=== PATIENT | female | born 1965 | race Caucasian/White ===

== ENCOUNTER 2016-09-27 12:05 | Emergency (ER) | payer MEDICAID ==
--- NOTE | 2016-09-27 12:27 | C.PDOC ---
History Of Present Illness 50 y/o female, with history of hypothyroidism, presents to ED with c/o right wrist pain. Patient states she was helping her mother walk down the stairs yesterday, and notes that her mother almost fell, causing her to reach out and grab the railing. Patient reports she sustained twisting injury to her right wrist. She notes pain is worse to lateral aspect of wrist, described as aching and sharp, and at times radiating up right arm. Denies weakness, numbness, fall , or other injury. PMD: Dr. Cobian Time Seen by Provider: 09/27/16 12:23 Chief Complaint (Nursing): Upper Extremity Problem/Injury History Per: Patient History/Exam Limitations: no limitations Onset/Duration Of Symptoms: Days Current Symptoms Are (Timing): Still Present Quality: Sharp, Aching, "Pain" Recent travel outside of the [place]: No Past Medical History Reviewed: Historical Data, Nursing Documentation, Vital Signs Vital Signs: Last Vital Signs Temp 98.7 F 09/27/16 12:10 Pulse 79 09/27/16 12:10 Resp 16 09/27/16 12:10 BP 110/76 09/27/16 12:10 Pulse Ox 96 09/27/16 12:48 - Medical History PMH: Hyperthyroidism Family History: States: Unknown Family Hx - Social History Hx Alcohol Use: No Hx Substance Use: No - Immunization History Hx Tetanus Toxoid Vaccination: No Hx Influenza Vaccination: No Review Of Systems Except As Marked, All Systems Reviewed And Found Negative. Constitutional: Negative for: Fever, Chills Musculoskeletal: Positive for: Other (right wrist pain) Skin: Negative for: Rash Neurological: Negative for: Weakness, Numbness Physical Exam - Physical Exam Appears: Non-toxic, No Acute Distress Skin: Normal Color, Warm, Dry Head: Atraumatic, Normacephalic Extremity: Tenderness (lateral right wrist), Capillary Refill (< 2 sec. ), No Deformity, No Swelling, Other (Right wrist ROM: pain with supination, no pain with pronation or flexion against resistance of the wrist) Extremity: Bilateral: Normal Color And Temperature Pulses: Left Radial: Normal, Right Radial: Normal Neurological/Psych: Oriented x3, Normal Motor, Normal Sensation ED Course And Treatment O2 Sat by Pulse Oximetry: 96 (RA) Pulse Ox Interpretation: Normal Medical Decision Making Medical Decision Making: IMPRESSION: 50 y/o female with right wrist pain DIFFERENTIAL DIAGNOSIS: muscle strain, tendon strain, r/o fracture PLAN: * Right wrist x-ray * Tylenol * Reassess PROGRESS: Xray negative. Patient will follow up with her PMD in 1-2days. Rest, ice and take ibruprofen as instructed. Disposition Doctor Will See Patient In The: ED Counseled Patient/Family Regarding: Diagnosis, Need For Followup, Rx Given - Disposition Referrals: Watson Mata MD [Medical Doctor] - Disposition: HOME/ ROUTINE Disposition Time: 12:54 Condition: IMPROVED Additional Instructions: Ms Purdy, thank you for letting us take care of you today. Your provider was Dr. Carvajal. You were treated for Wrist Injury. The emergency medical care you received today was directed at your acute symptoms. If you were prescribed any medication, please fill it and take as directed. It may take several days for your symptoms to resolve. Return to the Emergency Department if your symptoms worsen, do not improve, or if you have any other problems. Please contact your doctor or call one of the physicians/clinics you have been referred to that are listed on the Patient Visit Information form that is included in your discharge packet. Bring any paperwork you were given at discharge with you along with any medications you are taking to your follow up visit. Our treatment cannot replace ongoing medical care by a primary care provider (PCP) outside of the emergency department. Thank you for allowing the [facility] team to be part of your care today. If you had an X-Ray or CT scan: A Radiologist will review the ED reading if any change in treatment is needed we will contact you. If you had a blood, urine, or wound culture: It will take several days for the results, if any change in treatment is needed we will contact you. If you had an STI test: It will take 48 hours for the results. Please call after 1 week if you have not heard back. Prescriptions: Ibuprofen [Motrin] 600 mg PO Q6 PRN #30 tab PRN Reason: Pain, Moderate (4-7) Instructions: Wrist Injury (ED) Forms: Work Excuse, General Discharge Instructions - POA Present On Arrival: None - Clinical Impression Clinical Impression: Wrist strain - Scribe Statement The provider has reviewed the documentation as recorded by the Justus delgado Provider Attestation: All medical record entries made by the Scribe were at my direction and personally dictated by me. I have reviewed the chart and agree that the record accurately reflects my personal performance of the history, physical exam, medical decision making, and the department course for this patient. I have also personally directed, reviewed, and agree with the discharge instructions and disposition.
--- NOTE | 2016-09-27 13:32 | RAD ---
PROCEDURE: Right Wrist Radiographs. HISTORY: pain r/o fx COMPARISON: None. FINDINGS: BONES: There are small bony fragment seen adjacent to the lunate bone in the lateral view may represent acute of avulsion or chip fractures JOINTS: Normal. No dislocation. SOFT TISSUES: Normal. OTHER FINDINGS: None. IMPRESSION: Small bony fragments seen adjacent to the lunate bone in the lateral view suspicious for avulsion or chip fracture. Findings reported to and discussed with the referring physician Dr. Carvajal at 21:25 p.m. on 09/27/2016
[2016-09-27 14:43] VITALS: BP 102/72; PULSE 82; RESP 17; TEMP 98.2; O2SAT 100
== END 2016-09-27 14:45 | disposition home or self-care (01) ==
LOC: C.ER 12:05
DX: S62.101A Fracture of unspecified carpal bone, right wrist, initial encounter for closed fracture (principal); X50.1XXA Overexertion from prolonged static or awkward postures, initial encounter; Y92.89 Other specified places as the place of occurrence of the external cause

== ENCOUNTER 2017-08-12 16:16 | Emergency (ER) | payer MEDICAID ==
[2017-08-12 16:24] VITALS: BP 114/79; TEMP 98.6; O2SAT 97
--- NOTE | 2017-08-12 17:38 | C.PDOC ---
History Of Present Illness 51 yo female come in for evaluation of gradual onset of Right lower back pain developed for past 3 days. Pt reports, " lean forwards to wipe my foot in after shower and have hear some snap in my back". Pt sts, pain is localized over Right lower back and worse with movement. Otherwise, pt denies fall. head injury , LOC, neck pain, CP, SOB, abd. pain, N/V, denies UTI sx, saddle anesthesia, incontinence, denies weakness, sensory or vascular deficits to B/L LEs. Pt admits, takes Ibuprofen at hoe without improvement. Ambulate to ED for evaluation, not in any apparent distress. Time Seen by Provider: 08/12/17 17:12 Chief Complaint (Nursing): Back Pain History Per: Patient Onset/Duration Of Symptoms: Gradual Past Medical History Reviewed: Historical Data, Nursing Documentation, Vital Signs Vital Signs: Last Vital Signs Temp 98.6 F 08/12/17 16:21 Pulse Resp 18 08/12/17 16:21 BP 114/79 08/12/17 16:21 Pulse Ox 97 08/12/17 17:42 - Medical History PMH: Hyperthyroidism, Hypothyroidism Family History: States: Unknown Family Hx - Social History Hx Tobacco Use: No Hx Alcohol Use: No Hx Substance Use: No - Immunization History Hx Tetanus Toxoid Vaccination: No Hx Influenza Vaccination: No Review Of Systems Except As Marked, All Systems Reviewed And Found Negative. Constitutional: Negative for: Fever, Chills ENT: Negative for: Throat Pain Cardiovascular: Negative for: Chest Pain Respiratory: Negative for: Shortness of Breath Gastrointestinal: Negative for: Nausea, Vomiting, Abdominal Pain Genitourinary: Negative for: Dysuria, Frequency, Incontinence Musculoskeletal: Positive for: Back Pain. Negative for: Neck Pain Neurological: Negative for: Weakness, Numbness Physical Exam - Physical Exam Appears: Well, Non-toxic, No Acute Distress Skin: Normal Color, Warm, Dry, No Rash, No Ecchymosis Head: Normacephalic Eye(s): bilateral: PERRL Nose: No Flaring, No Deformity Oral Mucosa: Moist Neck: Trachea Midline, Supple Gastrointestinal/Abdominal: Soft, No Tenderness, No Distention, No Guarding, No Rebound Back: No CVA Tenderness, No Vertebral Tenderness, Muscle Spasm (Right lumbar paraspinal), Paraspinal Tenderness (Right lumbar paraspinal tenderness) Extremity: Normal ROM, No Tenderness, No Pedal Edema, No Deformity, No Swelling DTR: Knee (R): 2+, Knee (L): 2+, Ankle (R): 2+, Ankle (L): 2+ Neurological/Psych: Oriented x3, Normal Speech, Normal Motor, Normal Sensation ED Course And Treatment O2 Sat by Pulse Oximetry: 97 - Other Rad L-spine X-Ray: Interpreted by Me, Viewed By Me Interpretation: (+) severe DJD, (-) acute fx or sublux Progress Note: On re-eval, pt is afebrile, hemodynamicaly stable. Non-toxic. Ambulatory in ED with stable gait. PulsEOx 98% RA. neck: Supple, (-) midline tenderness. Abd: benign. Neurologicaly intact. L-spine xray review (+) diffuse mod DJD, no acute fx or sublux. Pt has clinical finidngs c/w Right lower back strain. Pt advised. re.f to f/u with PMD in 2-3 days for re-eval. return if any new changes. Disposition Counseled Patient/Family Regarding: Studies Performed, Diagnosis, Need For Followup, Rx Given - Disposition Referrals: Watson Mata MD [Medical Doctor] - Disposition: HOME/ ROUTINE Disposition Time: 18:20 Condition: STABLE Additional Instructions: Light duty to lower back Take medication as prescribed Follow up with PMD in 2-3 days for re-evaluation. Return to ED if any worsening or new changes. Prescriptions: Gabapentin [Neurontin] 300 mg PO TID #14 cap Prednisone [Deltasone] 40 mg PO DAILY #6 tablet traMADol [Ultram] 50 mg PO TID #7 tab Instructions: Low Back Pain (DC) Forms: [employer] (A[place]i) - Clinical Impression Clinical Impression: Low back strain
--- NOTE | 2017-08-12 18:38 | RAD ---
PROCEDURE: Radiographs of the Lumbar Spine. HISTORY: Pain. No history of recent/ related trauma provided COMPARISON: No prior. FINDINGS: BONES: Scoliosis, secondary degenerative change at multiple levels. DISC SPACES: Degenerative changes affecting virtually every level of the lumbar spine from L2-3 to the L5-S1. OTHER FINDINGS: Calcified nonaneurysmal abdominal aorta. Iliac artery stent identified. IMPRESSION: No acute findings related to/accounting for the clinical presentation.
[2017-08-12 19:30] VITALS: RESP 20
== END 2017-08-12 19:29 | disposition home or self-care (01) ==
LOC: C.ER 16:16
DX: S39.012A Strain of muscle, fascia and tendon of lower back, initial encounter (principal); X58.XXXA Exposure to other specified factors, initial encounter